=== PATIENT | female | born 1965 | race Caucasian/White ===

== ENCOUNTER → 2017-12-16 15:37 | Outpatient (CLI) | payer BC, SELFPAY ==
--- NOTE | 2017-12-16 15:41 | HPBI_ITS ---
MAMMOGRAPHY - BILATERAL SCREENING REASON FOR EXAM: Female, 52 years old. Routine annual screening examination. PERTINENT HISTORY: Non-contributory. Remote left stereotactic breast biopsy. TECHNIQUE: Digital bilateral breast serafin (3D mammographic acquisition) in the CC and MLO projections. 2-D mediolateral oblique (MLO) and craniocaudad (CC) views of both breasts were obtained. CAD: Full Field Digital Mammography with Computer Added Detection was performed. COMPARISON: Comparison is made with prior study dated August 24, 2016 and July 25, 2015. FINDINGS: Breast Composition: The breasts are heterogeneously dense, which may obscure small masses. There are no dominant masses or suspicious calcifications. A tissue clip marker is seen in the upper deep lateral portion of the left breast. Stable appearance of the small nodular densities in the upper outer quadrant of both breasts. These have been demonstrated to be small cysts on prior sonogram of both breasts. No other significant abnormalities are identified. There has been no significant change since the prior study. HPBI/SCREENING MAMM (CAD), BILAT IMPRESSION: Stable bilateral screening mammogram. Yearly follow-up mammogram recommended. (A) ASSESSMENT CATEGORY: BIRADS Category 2: Benign. A letter regarding these results will be sent to the patient by the facility within 30 days. Approximately 10% of breast cancers are not detected by mammography. A normal mammogram should not delay biopsy of a clinically suspicious abnormality. [id number] Electronically Signed: Rocco Peterson MD at 8:53 EST Tel [phone], Service support ,
== END ==
PROVIDERS: Family Provider Family Medicine; PCP Family Medicine; Visit Provider Family Medicine
DX: Z12.31 Encounter for screening mammogram for malignant neoplasm of breast (principal)
CPT/HCPCS: 77063; 77067

== ENCOUNTER → 2018-03-01 06:53 | Outpatient (CLI) | payer BC, SELFPAY ==
[2018-03-01 08:05] LABS: Cholesterol 239 mg/dL (200); High Density Lipoprotein 45 mg/dL; Triglycerides 187 mg/dL; Very Low Density Lipoprotein 37 mg/dL (5-40)
== END ==
PROVIDERS: Family Provider Family Medicine; PCP Family Medicine; Visit Provider Family Medicine
DX: E78.5 Hyperlipidemia, unspecified (principal)
CPT/HCPCS: 36415; 80061

== ENCOUNTER 2018-11-02 12:42 | Emergency (ER) | payer BC, SELFPAY ==
[2018-11-02 12:44] VITALS: BP 153/107; PULSE 89; RESP 16; TEMP 36.6; O2SAT 96; BMI 34.4
--- NOTE | 2018-11-02 13:08 | ED.VISSUMM ---
- ER Visit Summary Date of Service: 11/02/18 Chief Complaint: [] Bitten by dog right facial injury History of Present Illness: The patient is a 53 F [] she reports she has a large dog the dog dog basically try to bite her striking his teeth against her right side of her face she has contusion to the right periorbital area and a small tear or abrasion laceration to the right anterior ear no LOC no change in vision tetanus is not up-to-date no other complaints Physical Examination: [] All v signs are within normal range General, no distress resting comfortably HEENT is generally unremarkable except she has contusion over the right periorbital area, she has a thin tear involving the skin of the medial right upper lid the lid mechanism is intact the eye pupil reacts well excellent muscle movements are full she has a 7:00 subungual conjunctival hemorrhage her vision is normal, she is able to read the small print on the sponge gauze her nose mouth jaw are unremarkable over the anterior right ear she has a stellate minimal puncture brennen that is well approximated. The rest of the HEENT exam neck exam neurologic exam are all unremarkable The neck is supple no adenopathy Cardiovascular, regular rate and rhythm Lungs, clear bilateral Abdomen, soft nontender Extremities, no clubbing cyanosis or edema Neurologic, awake alert answering questions appropriately moving all 4 extremities Again the eye exam is as above there is no signs of obvious or gross eye trauma there is no floor seen available at the hospital to do a slit-lamp examination we did apply tetracaine to the eye, Spoke with Dr. RAFAEL UNDERWOOD professor of special education for ophthalmology he is in the office currently would like to see her in the office now for further management of the above, we did sterilely prep the laceration over the right anterior ear region, and then applied glue with good results she was instructed on wound care the need to see ophthalmology immediately today and return for change in symptoms please note we did update her tetanus, regarding antibiotic she is currently on antibiotics for her sinuses and of asked her to stay on that and follow with her outpatient physicians as well Test Results: [] Emergency Department Course and Treatment: [] Treatment Plan: [] Disposition: [] Home stable Impression: [] Dog bite involving right anterior ear region, right periorbital trauma, right upper lid injury This note was generated with [employer]isionation software. It may contain incorrect words, spelling, and punctuation that were not noted in review of the chart prior to signing ED Disposition - Plan for ED Patient: Chief Complaint: Bite Referrals: Karina Avelar DO [Primary Care Provider] -
[2018-11-02] MEDS: Diphth,Pertuss(Acell),Tet Vac 0.5 ML Vial IM (13:11)
--- NOTE | 2018-11-02 13:27 | ED.DEP ---
ED Disposition - Plan for ED Patient: Chief Complaint: Bite Instructions: ED Bite Dog Prescriptions: Hydrocodone Bitart/Apap 5-325 [Carmine 5MG-325MG] 1 tab PO Q4H PRN PRN 2 Days #10 tab PRN Reason: Pain Referrals: Karina Avelar DO [Primary Care Provider] - Ronald Ochoa MD [STAFF PHYSICIAN] - Additional Instructions: Go directly to the [facility] to be seen by the field specialist today
[2018-11-02 13:52] VITALS: BP 165/105; PULSE 71; RESP 16; O2SAT 99
--- NOTE | 2018-11-02 13:53 | ED.RN ---
REVIEWED D/C INSTRUCTIONS, FOLLOW UP CARE, PRESCRIPTION, AND S/S THAT WOULD WARRANT A RETURN TO THE ED WITH PT. PT VERBALIZED AN UNDERSTANDING AND DENIES FURTHER QUESTIONS FOR THIS RN. PT SKIN P/W/D, RESP EVEN AND UNLABORED, PT A&O X 3, NO DISTRESS NOTED. PT AMBULATED OUT OF ED, GAIT STEADY.
== END 2018-11-02 13:54 | disposition home or self-care (01) ==
LOC: ED 13:40
PROVIDERS: Emergency Provider Emergency Medicine; Family Provider Family Medicine; PCP Family Medicine
DX: S01.331A Puncture wound without foreign body of right ear, initial encounter (principal); S01.111A Laceration without foreign body of right eyelid and periocular area, initial encounter; H11.31 Conjunctival hemorrhage, right eye; W54.0XXA Bitten by dog, initial encounter; Y93.9 Activity, unspecified; Y92.9 Unspecified place or not applicable; Y99.9 Unspecified external cause status; Z23 Encounter for immunization; Z79.899 Other long term (current) drug therapy; S09.93XA Unspecified injury of face, initial encounter
CPT/HCPCS: 12011; 90715; 99282

== ENCOUNTER 2018-11-03 09:10 | Emergency (ER) | payer BC, SELFPAY ==
[2018-11-02 12:44] VITALS: BMI 34.4
[2018-11-03 09:12] VITALS: BP 162/97; PULSE 78; RESP 18; TEMP 36.6; O2SAT 96; BMI 34.4
[2018-11-03] MEDS: 0.9% Normal Saline 1,000 ML 999 ML IV (09:42)
[2018-11-03] MEDS: proCHLORPERazine 10 MG/2 ML Vial IV (09:42)
[2018-11-03] MEDS: DiphenhydrAMINE 50 MG/ML Syringe 25 MG IV (09:42)
[2018-11-03] MEDS: Ketorolac 30 MG/ML Syringe IV (09:42)
[2018-11-03] MEDS: Acetaminophen 500 MG Tablet 1000 MG PO (11:19)
[2018-11-03] MEDS: MethylPREDNISolone 125 MG/2 ML Vial IV (11:20)
--- NOTE | 2018-11-03 12:02 | ED.DCSUM_ITS ---
- ER Visit Summary Date of Service: 11/03/18 Chief Complaint: Headache History of Present Illness: The patient is a 53 F presenting for evaluation secondary to headache. Patient reports she has an underlying history of migraine headaches and gets them relatively frequently. Patient reports that yesterday she suffered a dog bite to the face. She was seen by ophthalmology and actually had her eyelid stitched yesterday. She denies that there is any blunt injury associated with this and this was actually a bite wound. Patient states that she was having some difficulty sleeping last night and therefore developed a migraine. This is consistent with her typical migraines associated with nausea vomiting and photophobia. Review of systems otherwise negative. Physical Examination: Vital signs within normal limits. Well-nourished female visibly uncomfortable and actively vomiting. Head normocephalic. There is some contusion of the upper eyelid on the right with sutures in place. There is mild subconjunctival hemorrhage noted to the eye. No evidence of hyphema. PRL, EOMI no entrapment. No temporal artery tenderness. Neck is supple no meningismus. Heart regular rate and rhythm. Nonlateralizing neurologic exam the remainder of physical otherwise unremarkable. Test Results: None indicated Emergency Department Course and Treatment: Patient presented secondary to a headache. Patient's injury yesterday seems more consistent with a bite rather than a significant blunt injury I do not believe that CT imaging is indicated. Patient was treated with Toradol Solu-Medrol Benadryl Compazine and Tylenol. Repeat evaluation of the patient showed significant symptom attic improvement. Patient was discharged. Disposition: Discharge Impression: 1. Migraine headache This note was generated with [employer] dictation software. It may contain incorrect words, spelling, and punctuation that were not noted in review of the chart prior to signing ED Disposition - Plan for ED Patient: Disposition: Home or Assisted Living Chief Complaint: Headache Diagnosis: Migraine headache Instructions: ED Headache Migraine Referrals: Karina Avelar DO [Primary Care Provider] - As Needed
[2018-11-03 12:14] VITALS: BP 156/97; PULSE 68; PULSE 78; RESP 14; RESP 18; O2SAT 98
== END 2018-11-03 12:17 | disposition home or self-care (01) ==
PROVIDERS: Emergency Provider Emergency Medicine; Family Provider Family Medicine; PCP Family Medicine
DX: G43.909 Migraine, unspecified, not intractable, without status migrainosus (principal); S01.85XD Open bite of other part of head, subsequent encounter; S00.11XD Contusion of right eyelid and periocular area, subsequent encounter; H11.31 Conjunctival hemorrhage, right eye; W54.0XXD Bitten by dog, subsequent encounter; Z79.899 Other long term (current) drug therapy
CPT/HCPCS: 96361; 96374; 96375; 99283; J7030; A4216

== ENCOUNTER → 2019-01-15 16:47 | Outpatient (CLI) | payer BC, SELFPAY ==
--- NOTE | 2019-01-15 16:51 | BI_ITS ---
MAMMOGRAPHY - BILATERAL SCREENING REASON FOR EXAM: Female, 53 years old. Routine annual screening examination. PERTINENT HISTORY: Non-contributory. Remote left stereotactic breast biopsy. TECHNIQUE: Digital bilateral breast serafin (3D mammographic acquisition) in the CC and MLO projections. 2-D mediolateral oblique (MLO) and craniocaudad (CC) views of both breasts were obtained. CAD: Full Field Digital Mammography with Computer Added Detection was performed. COMPARISON: Comparison is made with prior study dated December 16, 2017 and August 24, 2016. FINDINGS: Breast Composition: The breasts are heterogeneously dense, which may obscure small masses. There are no dominant masses or suspicious calcifications. A tissue clip marker is once again seen in the deep upper lateral portion of the left breast. Stable 3.1 cm x 1.8 cm well-defined nodule in the retroareolar region of the left breast. Stable small nodular densities in the central portion of the right breast. These have been demonstrated to be cysts on prior sonogram. No other significant abnormalities are identified. There has been no significant change since the prior study. BI/SCREENING MAMM (CAD), BILAT IMPRESSION: Stable bilateral screening mammogram. Yearly follow-up mammogram recommended. (A) ASSESSMENT CATEGORY: BIRADS Category 2: Benign. A letter regarding these results will be sent to the patient by the facility within 30 days. Approximately 10% of breast cancers are not detected by mammography. A normal mammogram should not delay biopsy of a clinically suspicious abnormality. [id number] Electronically Signed: Rocco Peterson, at 8:42 EST , Service support ,
== END ==
PROVIDERS: Family Provider Family Medicine; PCP Family Medicine; Referring Provider Family Medicine; Visit Provider Family Medicine
DX: Z12.31 Encounter for screening mammogram for malignant neoplasm of breast (principal)
CPT/HCPCS: 77063; 77067

== ENCOUNTER → 2019-01-24 07:16 | Outpatient (CLI) | payer BC, SELFPAY ==
[2019-01-24 08:26] LABS: Absolute Lymphocyte Count 2.04 X10^3/ul (0.83-4.51); Absolute Neutrophil Count 2.6 X10^3/uL (2.0-7.7); Basophil# 0.09 X10^3/uL; Basophil% 1.7 % (0-1); Eosinophil# 0.24 X10^3/uL; Eosinophils% 4.4 % (0-5); Hematocrit 41.6 % (37-47); Hemoglobin 13.1 g/dl (12.0-15.0); Lymphocyte # 2.04 X10^3/ul (4.0); Lymphocyte % 37.7 % (19-41); Mean Corp Hgb Conc 31.5 g/gl (32-36); Mean Corpuscular Hgb 28.2 pg (27.0-32.0); Mean Corpuscular Volume 89.7 fL (81-99); Mean Platelet Vol. 11.1 fl (6.2-12.0); Monocyte# 0.42 X10^3/uL; Monocyte% 7.8 % (0-10); Neutrophil # 2.61 X10^3/uL (2.7-7.7); Neutrophil % 48.2 % (47-70); POSITIVE COUNT NO; POSITIVE DIFFERENTIAL NO; POSITIVE MORPHOLOGY NO; Platelet Count 250 K/mm3 (150-450); RBC Distribution Width CV 12.7 % (11.6-14.6); RBC Distribution Width SD 40.9 fl (35.1-43.9); Red Blood Count 4.64 M/mm3 (4.2-5.4); White Blood Count 5.4 K/mm3 (4.4-11.0)
[2019-01-24 09:00] LABS: ALB/GLOB Ratio 1.1 RATIO (0.9-2.4); AST(SGOT) 19 U/L (15-37); Alanine Aminotransfer ALT/SGPT 19 U/L (13-56); Albumin, Serum 3.8 g/dL (3.2-5.0); Alkaline Phosphatase 51 U/L (45-117); BUN 23 mg/dL (7-18); BUN/Creat Ratio 31.2 RATIO (10-20); Calcium,Total 8.4 mg/dL (8.5-10.1); Chloride 110 mmol/L (98-107); Cholesterol 257 mg/dL (200); Creatinine, Serum 0.74 mg/dL (0.55-1.02); EST Glomerular Filtration Rate 88 mL/min (>60); Est Glom Filt Rate - Afr Amer 106 mL/min (>60); Globulin 3.4 g/dL (2.2-4.2); Glucose 92 mg/dL (74-106); Potassium 3.9 mmol/L (3.5-5.1); Protein, Total 7.2 g/dL (6.4-8.2); Sodium Level 144 mmol/L (136-145); Triglycerides 215 mg/dL
[2019-01-24 09:01] LABS: Anion Gap 5 (5-15); High Density Lipoprotein 46 mg/dL; T4 Free Direct 0.72 ng/dL (0.76-1.46); Thyroid Stim Hormone (TSH) 2.06 uIU/mL (0.358-3.74); Very Low Density Lipoprotein 43 mg/dL (5-40)
[2019-01-26 09:23] LABS: T3 Total - Triiodothyronine 1.06 ng/mL (0.6-1.81)
== END ==
PROVIDERS: Family Provider Family Medicine; PCP Family Medicine; Referring Provider Family Medicine; Visit Provider Family Medicine
DX: E78.5 Hyperlipidemia, unspecified (principal); Z51.81 Encounter for therapeutic drug level monitoring
CPT/HCPCS: 36415; 80053; 80061; 84439; 84443; 84480; 85025

== ENCOUNTER → 2019-05-02 07:09 | Outpatient (CLI) | payer BC, SELFPAY ==
[2019-05-02 08:25] LABS: ALB/GLOB Ratio 1.1 RATIO (0.9-2.4); AST(SGOT) 16 U/L (15-37); Alanine Aminotransfer ALT/SGPT 19 U/L (13-56); Albumin, Serum 3.9 g/dL (3.2-5.0); Alkaline Phosphatase 51 U/L (45-117); Anion Gap 7 (5-15); BUN 20 mg/dL (7-18); BUN/Creat Ratio 23.9 RATIO (10-20); Calcium,Total 8.9 mg/dL (8.5-10.1); Chloride 108 mmol/L (98-107); Cholesterol 202 mg/dL (200); Creatinine, Serum 0.84 mg/dL (0.55-1.02); EST Glomerular Filtration Rate 76 mL/min (>60); Est Glom Filt Rate - Afr Amer 92 mL/min (>60); Globulin 3.4 g/dL (2.2-4.2); Glucose 98 mg/dL (74-106); High Density Lipoprotein 46 mg/dL; Potassium 4.1 mmol/L (3.5-5.1); Protein, Total 7.3 g/dL (6.4-8.2); Sodium Level 143 mmol/L (136-145); Triglycerides 154 mg/dL; Very Low Density Lipoprotein 31 mg/dL (5-40)
== END ==
PROVIDERS: Family Provider Family Medicine; PCP Family Medicine; Referring Provider Family Medicine; Visit Provider Family Medicine
DX: E78.5 Hyperlipidemia, unspecified (principal); E66.9 Obesity, unspecified
CPT/HCPCS: 36415; 80053; 80061

== ENCOUNTER → 2019-10-24 06:57 | Outpatient (CLI) | payer BC, SELFPAY ==
[2019-10-24 08:30] LABS: ALB/GLOB Ratio 1.2 RATIO (0.9-2.4); AST(SGOT) 16 U/L (15-37); Alanine Aminotransfer ALT/SGPT 19 U/L (13-56); Alkaline Phosphatase 52 U/L (45-117); Anion Gap 4 (5-15); BUN 24 mg/dL (7-18); BUN/Creat Ratio 35.9 RATIO (10-20); Calcium,Total 8.5 mg/dL (8.5-10.1); Chloride 108 mmol/L (98-107); Cholesterol 200 mg/dL (200); Creatinine, Serum 0.67 mg/dL (0.55-1.02); EST Glomerular Filtration Rate 98 mL/min (>60); Est Glom Filt Rate - Afr Amer 119 mL/min (>60); Globulin 3.4 g/dL (2.2-4.2); Glucose 98 mg/dL (74-106); High Density Lipoprotein 62 mg/dL; Protein, Total 7.4 g/dL (6.4-8.2); Sodium Level 139 mmol/L (136-145); Triglycerides 101 mg/dL; Very Low Density Lipoprotein 20 mg/dL (5-40)
== END ==
PROVIDERS: Family Provider Family Medicine; PCP Family Medicine; Referring Provider Family Medicine; Visit Provider Family Medicine
DX: E78.5 Hyperlipidemia, unspecified (principal); E66.9 Obesity, unspecified
CPT/HCPCS: 36415; 80053; 80061

== ENCOUNTER → 2020-01-19 17:30 | Outpatient (CLI) | payer BC, SELFPAY ==
--- NOTE | 2020-01-19 17:18 | BI_ITS ---
MAMMOGRAPHY - BILATERAL SCREENING REASON FOR EXAM: Female, 54 years old. Routine annual screening examination. PERTINENT HISTORY: Non-contributory. Remote left stereotactic breast biopsy. TECHNIQUE: Digital bilateral breast chiquita (3D mammographic acquisition) in the CC and MLO projections. 2-D mediolateral oblique (MLO) and craniocaudad (CC) views of both breasts were obtained. CAD: Full Field Digital Mammography with Computer Added Detection was performed. COMPARISON: Comparison is made with prior examination of January 15, 2019 and December 16, 2017. FINDINGS: Breast Composition: The breasts are heterogeneously dense, which may obscure small masses. There is a stable 2.9 cm x 1.9 cm well-defined nodule in the retroareolar region of the left breast. A tissue clip marker is once again seen in the deep upper lateral portion of the left breast. No other significant abnormalities are identified. There has been no significant change since the prior study. BI/SCREEN MAMM (CAD) W/CHIQUITA BILAT IMPRESSION: Stable bilateral screening mammogram. Yearly follow-up mammogram recommended. (A) ASSESSMENT CATEGORY: BIRADS Category 2: Benign. A letter regarding these results will be sent to the patient by the facility within 30 days. Approximately 10% of breast cancers are not detected by mammography. A normal mammogram should not delay biopsy of a clinically suspicious abnormality. [id number] Electronically Signed: Rocco Peterson, at 9:33 EDT , Service support ,
== END ==
PROVIDERS: Family Provider Family Medicine; PCP Family Medicine; Referring Provider Family Medicine; Visit Provider Family Medicine
DX: Z12.31 Encounter for screening mammogram for malignant neoplasm of breast (principal)
CPT/HCPCS: 77063; 77067

== ENCOUNTER → 2020-08-08 16:30 | Outpatient (CLI) | payer BC, SELFPAY | PROVIDERS: PCP Family Medicine; Visit Provider Family Medicine | DX: Z11.59 Encounter for screening for other viral diseases (principal) | CPT/HCPCS: 87635; U0003 ==

== ENCOUNTER → 2020-10-24 11:56 | Outpatient (CLI) | payer BC, SELFPAY | PROVIDERS: PCP Family Medicine; Visit Provider Family Medicine | DX: Z20.828 Contact with and (suspected) exposure to other viral communicable diseases (principal) | CPT/HCPCS: 87635; U0003 ==

== ENCOUNTER 2020-11-29 08:00 | Outpatient (RCR) | payer BC, SELFPAY | END 2020-11-29 23:59 | LOC: IMMUN 08:00 | PROVIDERS: PCP Family Medicine; Visit Provider Family Medicine | DX: Z23 Encounter for immunization (principal) | CPT/HCPCS: 0011A; 0012A ==

== ENCOUNTER → 2021-01-21 07:18 | Outpatient (CLI) | payer BC, SELFPAY ==
[2021-01-21 08:34] LABS: ALB/GLOB Ratio 1.2 RATIO (0.9-2.4); AST(SGOT) 17 U/L (15-37); Alanine Aminotransfer ALT/SGPT 21 U/L (13-56); Alkaline Phosphatase 54 U/L (45-117); Anion Gap 5 (5-15); BUN 21 mg/dL (7-18); BUN/Creat Ratio 30.9 RATIO (10-20); Calcium,Total 8.7 mg/dL (8.5-10.1); Chloride 108 mmol/L (98-107); Cholesterol 238 mg/dL (200); Creatinine, Serum 0.68 mg/dL (0.55-1.02); EST Glomerular Filtration Rate 96 mL/min (>60); Est Glom Filt Rate - Afr Amer 116 mL/min (>60); Globulin 3.3 g/dL (2.2-4.2); Glucose 99 mg/dL (74-106); High Density Lipoprotein 79 mg/dL; Protein, Total 7.3 g/dL (6.4-8.2); Sodium Level 142 mmol/L (136-145); Triglycerides 56 mg/dL; Very Low Density Lipoprotein 11 mg/dL (5-40)
== END ==
PROVIDERS: PCP Family Medicine; Referring Provider Family Medicine; Visit Provider Family Medicine
DX: E78.5 Hyperlipidemia, unspecified (principal); Z51.81 Encounter for therapeutic drug level monitoring
CPT/HCPCS: 36415; 80053; 80061

== ENCOUNTER → 2021-06-06 17:20 | Outpatient (CLI) | payer BC, SELFPAY ==
--- NOTE | 2021-06-06 16:44 | BI_ITS ---
MAMMOGRAPHY - BILATERAL SCREENING REASON FOR EXAM: Female, 55 years old. Routine annual screening examination. PERTINENT HISTORY: Non-contributory. Prior left stereotactic breast biopsy. TECHNIQUE: Digital bilateral breast chiquita (3D mammographic acquisition) in the CC and MLO projections. 2-D mediolateral oblique (MLO) and craniocaudad (CC) views of both breasts were obtained. CAD: Full Field Digital Mammography with Computer Added Detection was performed. COMPARISON: Comparison is made with prior study dated 01/19/2020 and 01/15/2019. FINDINGS: Breast Composition: The breasts are heterogeneously dense, which may obscure small masses. Stable 2.6 cm by centimeter nodule in the retroareolar region of the left breast. Stable 9 mm well-defined nodule in the inferior central portion of the right breast. Correlation with ultrasound is recommended for further evaluation. A tissue clip marker is once again seen in the deep upper lateral portion of the left breast. No other significant abnormalities are identified. BI/SCRN MAMM (CAD)W/CHIQUITA BILAT IMPRESSION: Stable bilateral screening mammogram. Correlation with ultrasound of both breasts is recommended due to the presence of bilateral nodules. ASSESSMENT CATEGORY: BIRADS Category 0: Incomplete. Need additional imaging evaluation. A letter regarding these results will be sent to the patient by the facility within 30 days. Approximately 10% of breast cancers are not detected by mammography. A normal mammogram should not delay biopsy of a clinically suspicious abnormality. [id number] Electronically Signed: Rocco Peterson MD at 8:09 EDT , Service support ,
== END ==
PROVIDERS: PCP Family Medicine; Referring Provider Family Medicine; Visit Provider Family Medicine
DX: Z12.31 Encounter for screening mammogram for malignant neoplasm of breast (principal); N63.15 Unspecified lump in the right breast, overlapping quadrants; N63.25 Unspecified lump in the left breast, overlapping quadrants
CPT/HCPCS: 77063; 77067

== ENCOUNTER → 2021-06-13 14:30 | Outpatient (CLI) | payer BC, SELFPAY ==
--- NOTE | 2021-06-13 14:35 | US_ITS ---
STUDY: ULTRASOUND BREAST - RIGHT REASON FOR EXAM: Female, 55 years old. TECHNIQUE: Axial and longitudinal images of the RIGHT breast were performed with a high resolution ultrasound transducer. # OF IMAGES: 16 COMPARISON: Previous mammogram obtained on 06/06/2021 FINDINGS: RIGHT Breast: There is a lesion in the inferior lateral quadrant. The lesion measures 0.8 x 0.9 x 0.6 cm in size and represents a cyst with internal septation.. Clock notation: 7 o''clock position. Distance from nipple: 6 cm. Posterior Enhancement: Yes Posterior Shadowing: No Margins: Smooth Echogenicity: None Compression effect on Shape: Yes US/Breast Limited Unilateral IMPRESSION: A simple cyst is noted in the right breast accounting for the right breast nodular density ASSESSMENT CATEGORY: BIRADS Category 2: Benign. A letter regarding these results will be sent to the patient by the facility within 30 days. Electronically Signed: Marco Antonio Carnes DO at 10:59 EDT Tel , Service support ,
== END ==
PROVIDERS: PCP Family Medicine; Referring Provider Family Medicine; Visit Provider Family Medicine
DX: R92.8 Other abnormal and inconclusive findings on diagnostic imaging of breast (principal); N60.01 Solitary cyst of right breast; N60.02 Solitary cyst of left breast
CPT/HCPCS: 76642

== ENCOUNTER → 2022-03-23 | Outpatient (CLI) | payer BC, SELFPAY ==
[2022-03-23 10:30] LABS: AST(SGOT) 17 U/L (15-37); Alanine Aminotransfer ALT/SGPT 23 U/L (13-56); Cholesterol 171 mg/dL (200); High Density Lipoprotein 54 mg/dL; Triglycerides 86 mg/dL; Very Low Density Lipoprotein 17 mg/dL (5-40)
== END | disposition home or self-care (01) ==
LOC: MFPLAB 08:08
PROVIDERS: PCP Family Medicine; Referring Provider Family Medicine; Visit Provider Family Medicine
DX: E78.5 Hyperlipidemia, unspecified (principal)
CPT/HCPCS: 36415; 80061; 84450; 84460

== ENCOUNTER → 2022-05-22 | Outpatient (CLI) | payer BC, SELFPAY ==
[2022-05-22 10:49] LABS: Lyme Ab Screen Interpretation REF LAB
[2022-05-23 16:59] LABS: Lyme Scn Total Ab w/Rflx Negative (Negative)
== END | disposition home or self-care (01) ==
LOC: MFPLAB 10:48
PROVIDERS: PCP Family Medicine; Referring Provider Family Medicine; Visit Provider Family Medicine
DX: T14.90XA Injury, unspecified, initial encounter (principal); W57.XXXA Bitten or stung by nonvenomous insect and other nonvenomous arthropods, initial encounter
CPT/HCPCS: 36415; 86618

== ENCOUNTER → 2022-08-21 | Outpatient (CLI) | payer OTHER, SELFPAY ==
--- NOTE | 2022-08-21 16:20 | BI_ITS ---
MAMMOGRAPHY - BILATERAL SCREENING REASON FOR EXAM: Female, 56 years old. Routine annual screening examination. PERTINENT HISTORY: Non-contributory. Remote left stereotactic breast biopsy. TECHNIQUE: Digital bilateral breast chiquita (3D mammographic acquisition) in the CC and MLO projections. 2-D mediolateral oblique (MLO) and craniocaudad (CC) views of both breasts were obtained. CAD: Full Field Digital Mammography with Computer Added Detection was performed. COMPARISON: Comparison is made with prior examination dated 06/06/2021 and 01/19/2020. FINDINGS: Breast Composition: The breasts are heterogeneously dense, which may obscure small masses. There are no dominant masses or suspicious calcifications. Stable fat-containing bilateral axillary lymph nodes. Stable 9 mm well-defined nodule in the inferior central portion of the breast. This was demonstrated to be a cyst on prior sonogram dated 06/13/2021. Stable 2.6 cm well-defined nodule in the retroareolar region of the left breast. Prior sonogram demonstrating this to be a septated cyst. No other significant abnormalities are identified. There has been no significant change since the prior study. BI/SCRN MAMM (CAD)W/CHIQUITA BILAT IMPRESSION: Stable bilateral screening mammogram. Yearly follow-up mammogram recommended. (A) ASSESSMENT CATEGORY: BIRADS Category 2: Benign. A letter regarding these results will be sent to the patient by the facility within 30 days. Approximately 10% of breast cancers are not detected by mammography. A normal mammogram should not delay biopsy of a clinically suspicious abnormality. [id number] Electronically Signed: Rocco Peterson MD at 8:49 EDT ,
== END | disposition home or self-care (01) ==
LOC: OPBI 08-22 07:21
PROVIDERS: PCP Family Medicine; Visit Provider Family Medicine
DX: Z12.31 Encounter for screening mammogram for malignant neoplasm of breast (principal)
CPT/HCPCS: 77063; 77067

== ENCOUNTER → 2023-02-23 | Outpatient (CLI) | payer OTHER, SELFPAY ==
[2023-02-23 08:06] LABS: ALB/GLOB Ratio 1.1 RATIO (0.9-2.4); AST(SGOT) 18 U/L (15-37); Alanine Aminotransfer ALT/SGPT 22 U/L (13-56); Albumin, Serum 3.8 g/dL (3.2-5.0); Alkaline Phosphatase 55 U/L (45-117); Anion Gap 1 (5-15); BUN 22 mg/dL (7-18); BUN/Creat Ratio 28.7 RATIO (10-20); Calcium,Total 9.1 mg/dL (8.5-10.1); Chloride 110 mmol/L (98-107); Cholesterol 197 mg/dL (200); Creatinine, Serum 0.77 mg/dL (0.55-1.02); EST Glomerular Filtration Rate 83 mL/min (>60); Est Glom Filt Rate - Afr Amer 100 mL/min (>60); Globulin 3.5 g/dL (2.2-4.2); Glucose 102 mg/dL (74-106); High Density Lipoprotein 64 mg/dL; Potassium 3.8 mmol/L (3.5-5.1); Protein, Total 7.3 g/dL (6.4-8.2); Sodium Level 141 mmol/L (136-145); Triglycerides 80 mg/dL; Very Low Density Lipoprotein 16 mg/dL (5-40)
== END | disposition home or self-care (01) ==
LOC: LAB 07:07
PROVIDERS: PCP Family Medicine; Referring Provider Nurse Practitioner Family; Visit Provider Nurse Practitioner Family
DX: Z13.1 Encounter for screening for diabetes mellitus (principal); E78.5 Hyperlipidemia, unspecified
CPT/HCPCS: 36415; 80053; 80061; 83036

== ENCOUNTER → 2023-03-02 | Outpatient (CLI) | payer OTHER, SELFPAY ==
[2023-03-02 09:14] LABS: Hemoglobin A1c 5.4 % (3.8-5.6)
== END | disposition home or self-care (01) ==
LOC: LAB 08:43
PROVIDERS: PCP Family Medicine; Visit Provider Nurse Practitioner Family
DX: R73.01 Impaired fasting glucose (principal)
CPT/HCPCS: 36415; 83036

== ENCOUNTER → 2023-09-06 | Outpatient (CLI) | payer OTHER, SELFPAY ==
--- NOTE | 2023-09-05 16:45 | BI_ITS ---
MAMMOGRAPHY - BILATERAL SCREENING REASON FOR EXAM: Female, 58 years old. Routine annual screening examination. PERTINENT HISTORY: Non-contributory. Remote left stereotactic breast biopsy. TECHNIQUE: Digital bilateral breast chiquita (3D mammographic acquisition) in the CC and MLO projections. 2-D mediolateral oblique (MLO) and craniocaudad (CC) views of both breasts were obtained. CAD: Full Field Digital Mammography with Computer Added Detection was performed. COMPARISON: Comparison is made with prior examination dated August 21, 2022 and June 06, 2021. FINDINGS: Breast Composition: The breasts are heterogeneously dense, which may obscure small masses. Stable 2.6 cm well-defined nodule in the retroareolar region of the left breast. This was demonstrated to be a cyst on prior sonogram. Stable 9 mm well-defined nodule in the inferior central portion of the right breast. Tissue clip marker is again seen in the axillary region of the left breast. No other significant abnormalities are identified. There has been no significant change since the prior study. BI/SCRN MAMM (CAD)W/CHIQUITA BILAT IMPRESSION: Stable bilateral screening mammogram. Yearly follow-up mammogram recommended. (A) ASSESSMENT CATEGORY: BIRADS Category 2: Benign. A letter regarding these results will be sent to the patient by the facility within 30 days. Approximately 10% of breast cancers are not detected by mammography. A normal mammogram should not delay biopsy of a clinically suspicious abnormality. [id number] Electronically Signed: Rocco Peterson MD at 8:43 EDT ,
== END | disposition home or self-care (01) ==
LOC: OPBI 07:27
PROVIDERS: PCP Family Medicine; Referring Provider Family Medicine; Visit Provider Family Medicine
DX: Z12.31 Encounter for screening mammogram for malignant neoplasm of breast (principal)
CPT/HCPCS: 77063; 77067

== ENCOUNTER → 2024-10-16 | Outpatient (CLI) | payer OTHER, SELFPAY ==
--- NOTE | 2024-10-15 17:26 | BI_ITS ---
MAMMOGRAPHY - BILATERAL SCREENING REASON FOR EXAM: Female, 59 years old. Routine annual screening examination. PERTINENT HISTORY: Non-contributory. Remote left stereotactic breast biopsy. TECHNIQUE: Digital bilateral breast chiquita (3D mammographic acquisition) in the CC and MLO projections. 2-D mediolateral oblique (MLO) and craniocaudad (CC) views of both breasts were obtained. CAD: Full Field Digital Mammography with Computer Added Detection was performed. COMPARISON: Comparison is made with prior study September 05, 2023 and August 21, 2022. FINDINGS: Breast Composition: The breasts are heterogeneously dense, which may obscure small masses. Stable 3 cm well-defined nodule in the retroareolar region of the left breast. This was demonstrated to be a cyst on prior sonogram. Tissue clip marker is seen in the axillary region of the left breast. No other significant abnormalities are identified. There has been no significant change since the prior study. BI/SCRN MAMM (CAD)W/CHIQUITA BILAT IMPRESSION: Stable bilateral screening mammogram. Yearly follow-up mammogram recommended. (A) ASSESSMENT CATEGORY: BIRADS Category 2: Benign. A letter regarding these results will be sent to the patient by the facility within 30 days. Approximately 10% of breast cancers are not detected by mammography. A normal mammogram should not delay biopsy of a clinically suspicious abnormality. [id number] Electronically Signed: Rocco Peterson MD at 8:43 EST ,
== END | disposition home or self-care (01) ==
PROVIDERS: PCP Family Medicine; Referring Provider Family Medicine; Visit Provider Family Medicine
DX: Z12.31 Encounter for screening mammogram for malignant neoplasm of breast (principal)
CPT/HCPCS: 77063; 77067

== ENCOUNTER → 2025-02-27 | Outpatient (CLI) | payer OTHER, SELFPAY ==
[2025-02-27 12:30] LABS: AST(SGOT) 24 U/L (<=31); Alanine Aminotransfer ALT/SGPT 17 U/L (<=34); Albumin, Serum 4.5 g/dL (3.5-5.0); Alkaline Phosphatase 53 U/L (35-104); Bilirubin, Direct 0.09 mg/dL (0.00-0.30); Cholesterol 213 mg/dL (<=200); Globulin 2.5 g/dL (2.2-4.2); High Density Lipoprotein 69 mg/dL; Low Density Lipoprotein Calc. 126 mg/dL; Protein, Total 7.1 g/dL (5.9-8.4); Triglycerides 89 mg/dL; Very Low Density Lipoprotein 18 mg/dL (5-40); cholesterol:hdl ratio screen 3.09
== END | disposition home or self-care (01) ==
LOC: LAB 07:29
PROVIDERS: PCP Family Medicine
DX: Z00.00 Encounter for general adult medical examination without abnormal findings (principal)
CPT/HCPCS: 36415; 80061; 80076